=== PATIENT | male | born 1980 | race Caucasian/White ===

== ENCOUNTER 2019-06-13 21:19 | Emergency (ER) | payer SELFPAY ==
--- NOTE | 2019-06-13 21:48 | Event Note ---
ED Screening Note Date of service: 06/13/19 Time: 21:47 ED Screening Note: 39 y/o male c/o right lower leg gash after accidental sawing his lower leg this evening. This initial assessment/diagnostic orders/clinical plan/treatment(s) is/are subject to change based on patients health status, clinical progression and re- assessment by fellow clinical providers in the ED. Further treatment and workup at subsequent clinical providers discretion. Patient/guardian urged not to elope from the ED as their condition may be serious if not clinically assessed and managed. Initial orders include:
[2019-06-13] MEDS ORDERED: ONDANSETRON 4 MG/2 ML INJ IV ONE (22:14)
[2019-06-13] MEDS ORDERED: MORPHINE 2 MG/1 ML INJ IV ONE (22:14)
[2019-06-13] MEDS ORDERED: TETANUS,DIPH,PERTUSS(ACELL) VACCINE 0.5 ML SYRINGE IM ONE (22:17)
[2019-06-13] MEDS ORDERED: ONDANSETRON 4 MG/2 ML INJ ONE (22:18)
[2019-06-13] MEDS ORDERED: LIDOCAINE 2%/EPINEPHRINE 1:100,000 VIAL (20 ML) INFILTRATI ONE ×2 (22:18→23:09)
[2019-06-13] MEDS ORDERED: MORPHINE 4 MG/1 ML INJ ONE (22:19)
--- NOTE | 2019-06-13 22:28 | Emergency Department Report ---
- General Chief Complaint: Wound/Laceration Stated Complaint: CUT ON RIGHT FOOT Time Seen by Provider: 06/13/19 21:44 Source: patient Mode of arrival: Ambulatory Limitations: No Limitations - History of Present Illness Initial Comments: 39-year-old male with laceration to right lower leg, sustained with a power saw. Patient able to move his foot and toes, denies any numbness and tingling. Tetanus is not up-to-date. -: hour(s) (2) Extremity Location: Right: Lower Leg Patient Tetanus UTD: No Context: accidental Associated Symptoms: denies: loss of feeling/numbness, unable to move injured part Treatments Prior to Arrival: bandage - Related Data Previous Rx's Medication Instructions Recorded Last Taken Type HYDROcodone/APAP 5-325 [Dora 1 each PO Q6HR PRN #10 tablet 06/13/19 Unknown Rx 5/325] Naproxen [Naprosyn] 500 mg PO BID #20 tablet 06/13/19 Unknown Rx cephALEXin [Keflex] 500 mg PO Q12HR 7 Days #14 cap 06/13/19 Unknown Rx Allergies Allergy/AdvReac Type Severity Reaction Status Date / Time No Known Allergies Allergy Unverified 06/13/19 22:27 ED Review of Systems ROS: Stated complaint: CUT ON RIGHT FOOT Other details as noted in HPI Comment: All other systems reviewed and negative Skin: other (reports laceration) Neurological: denies: weakness, numbness, paresthesias ED Past Medical Hx - Past Medical History Previous Medical History?: No Hx Hypertension: No Hx CVA: No Hx Heart Attack/AMI: No Hx Congestive Heart Failure: No Hx Diabetes: No Hx Deep Vein Thrombosis: No Hx Pulmonary Embolism: No Hx GERD: No Hx Liver Disease: No Hx Renal Disease: No Hx of Cancer: No Hx Sickle Cell Disease: No Hx Arthritis: No Hx Headaches / Migraines: No Hx Seizures: No Hx Kidney Stones: No Hx Psychiatric Treatment: No Hx Asthma: No Hx COPD: No Hx Tuberculosis: No Hx Dementia: No Hx HIV: No - Surgical History Past Surgical History?: No Hx Coronary Stent: No Hx Open Heart Surgery: No Hx Internal Defibrillator: No Hx Cholecystectomy: No Hx Appendectomy: No Hx Breast Surgery: No - Medications Home Medications: Home Medications Medication Instructions Recorded Confirmed Last Taken Type HYDROcodone/APAP 5-325 [Dora 1 each PO Q6HR PRN #10 tablet 06/13/19 Unknown Rx 5/325] Naproxen [Naprosyn] 500 mg PO BID #20 tablet 06/13/19 Unknown Rx cephALEXin [Keflex] 500 mg PO Q12HR 7 Days #14 cap 06/13/19 Unknown Rx ED Physical Exam - General Limitations: No Limitations General appearance: alert, in no apparent distress - Head Head exam: Present: atraumatic, normocephalic - Eye Eye exam: Present: normal appearance, PERRL, EOMI - ENT ENT exam: Present: mucous membranes moist - Neck Neck exam: Present: normal inspection - Respiratory Respiratory exam: Present: normal lung sounds bilaterally. Absent: respiratory distress - Cardiovascular Cardiovascular Exam: Present: regular rate, normal rhythm - Extremities Exam Extremities exam: Present: other (laceration to right lower leg with approx 8x6 cm avulsion of skin) - Neurological Exam Neurological exam: Present: alert, oriented X3. Absent: motor sensory deficit - Psychiatric Psychiatric exam: Present: normal affect, normal mood - Skin Skin exam: Present: warm, dry ED Course Vital Signs 06/13/19 06/14/19 06/14/19 22:25 00:15 00:19 Pulse Rate 66 68 Respiratory 15 16 16 Rate Blood Pressure 156/96 149/95 [Right] O2 Sat by Pulse 98 97 97 Oximetry ED Medical Decision Making - Medical Decision Making 39-year-old male with injuries to right lower leg with a power saw, resulting in large area of avulsion of skin. Unable to suture due to lack of tissue in the area. Area was irrigated well with 1000 mL of saline. No debris present within the wound. Xeroform gauze applied, followed by 4 x 4 gauze, and then wrapped with Kerlix. Patient given a prescription for antibiotics and pain medication. Advised to follow-up with plastics for possible skin grafting. Return precautions given. - Differential Diagnosis laceration Critical care attestation.: If time is entered above; I have spent that time in minutes in the direct care of this critically ill patient, excluding procedure time. ED Disposition Clinical Impression: Laceration of right lower leg, Avulsion of skin of right lower leg Disposition: - TO HOME OR SELFCARE Is pt being admited?: No Condition: Stable Instructions: Laceration (ED), Acute Wound Care (ED), Skin Avulsion (ED) Additional Instructions: Change dressings daily. Clean with warm soap and water. Return to ER if you begin to notice any signs of infection (fever, redness, drainage, bad smell, worsening pain). Prescriptions: cephALEXin [Keflex] 500 mg PO Q12HR 7 Days #14 cap Naproxen [Naprosyn] 500 mg PO BID #20 tablet HYDROcodone/APAP 5-325 [Dora 5/325] 1 each PO Q6HR PRN #10 tablet PRN Reason: Pain Referrals: [facility] [Outside] - 3-5 Days CADENCE ESTRADA MD [Staff Physician] - 3-5 Days WORK,MAUDE Thomas JR, MD [Staff Physician] - 3-5 Days SALLY OBRIEN MD [Staff Physician] - 3-5 Days BOOTSTAYLIVY JAVIER MD [Staff Physician] - 3-5 Days Time of Disposition: 23:13 Print Language: CYPRIOT
[2019-06-13] MEDS ORDERED: SODIUM CHLORIDE IRRI 500 ML 500 ML IR ONE ×2 (22:37→22:45)
[2019-06-13] MEDS ORDERED: ceFAZolin/NS 1 GM/50 ML 1 GM/50 ML BAG IV ONE (22:44)
[2019-06-13] MEDS ORDERED: SODIUM CHLORIDE 0.9% IRR 500 ML BOTTLE IR ONE ×2 (23:05→23:11)
[2019-06-14 00:18] VITALS: BP 149/95
== END 2019-06-14 00:29 | disposition home or self-care (01) ==
LOC: ED 21:19
DX: S81.811A Laceration without foreign body, right lower leg, initial encounter (principal); Z79.899 Other long term (current) drug therapy; W26.8XXA Contact with other sharp object(s), not elsewhere classified, initial encounter; Y93.89 Activity, other specified; Y92.89 Other specified places as the place of occurrence of the external cause; Y99.8 Other external cause status
CPT/HCPCS: 90471; 90715; 96374; 96375; 99282; J0690; J2270; J2405